=== PATIENT | female | born 1980 | race Caucasian/White ===

== ENCOUNTER 2016-07-03 19:31 | Emergency (ER) | payer OTHER ==
[2016-07-03 19:17] LABS: BASOPHIL% 0.9 % (0-2.5); EOSINOPHIL# 0.1 X10e3 (0-0.7); EOSINOPHIL% 1.5 % (0.0-7.0); HEMATOCRIT 28.7 % (35.0-45.0); HEMOGLOBIN 9.5 gm/dL (12.0-16.0); LYMPHOCYTE# 1.7 X10e3 (1.0-3.5); LYMPHOCYTE% 38.2 % (17.0-45.0); MEAN CELL VOLUME 94.7 FL (83-96); MEAN CORPUSCULAR HEMOGLOBIN 31.3 PG (28-34); MEAN PLATELET VOLUME 6.8 FL (6.5-11.5); MONOCYTE# 0.5 X10e3 (0-1.0); MONOCYTE% 10.2 % (3.0-12.0); NEUTROPHIL# 2.2 X10e3 (1.5-7.1); NEUTROPHIL% 49.2 % (40-75); PLATELET COUNT 187 X10e3 (140-420); RED BLOOD COUNT 3.03 X10e (3.90-5.30); WHITE BLOOD COUNT 4.4 X10e3 (4.0-10.5)
[2016-07-03 19:20] LABS: DIFF IND NO
[~2016-07-03 19:31] MED LIST: ALDACTONE100 MG PO; COLESTIPOL HCL11 PO; FOLIC ACID1 MG PO; LASIX20 MG PO; LEVAQUIN PO; MAGNESIUM OXID250 M1 PO; MAGNESIUM400 M1 PO; MULTI VITAMIN1 EACH PO; PRILOSEC20 M1 PO; SPIRONOLACTONE50 MG PO; THIAMINE HCL100 M1 PO; THIAMINE HCL100 M2 PO
[2016-07-03 19:49] LABS: ALBUMIN SERUM 3.4 g/dL (3.5-5.0); ALKALINE PHOSPHATASE 102 U/L (32-92); ALT (SGPT) 26 U/L (10-40); AST (SGOT) 43 U/L (10-42); BILIRUBIN, DIRECT 0.9 mg/dL (0.0-0.2); BILIRUBIN,INDIRECT 2.4 mg/dL (0.0-0.9); BILIRUBIN,TOTAL 3.3 mg/dL (0.2-2.0); BLOOD UREA NITROGEN 8 mg/dL (9-23); BUN/CREATININE RATIO 26.66; CALCIUM SERUM 9.4 mg/dL (8.4-10.2); CARBON DIOXIDE 22 mmol/L (22-31); CHLORIDE 105 mmol/L (100-111); CREATININE SERUM 0.3 mg/dL (0.6-1.4); GLOM FILT RATE Estimated ABOVE60 mL/min (>60); GLUCOSE FASTING 81 mg/dL (70-110); MAGNESIUM 1.2 mg/dL (1.6-3.0); POTASSIUM 3.3 mmol/L (3.5-5.1); PROTEIN TOTAL SERUM 7.4 g/dL (6.0-8.3); SODIUM 139 mmol/L (135-145)
== END 2016-07-03 20:20 | disposition home or self-care (01) ==
LOC: CED 19:31
PROVIDERS: Emergency Medicine
DX: K72.10 Chronic hepatic failure without coma (principal); D64.9 Anemia, unspecified; E87.6 Hypokalemia; E83.42 Hypomagnesemia
CPT/HCPCS: 36415; 80048; 80076; 83735; 85025; 99283

== ENCOUNTER 2016-07-21 21:35 | Emergency (ER) | payer OTHER | END 2016-07-21 21:40 | disposition home or self-care (01) | LOC: CED 21:35 | DX: M79.2 Neuralgia and neuritis, unspecified (principal); R21 Rash and other nonspecific skin eruption | CPT/HCPCS: 99282 ==

== ENCOUNTER → 2016-09-11 | Outpatient (CLI) | payer OTHER ==
--- NOTE | ~2016-09-11 | CR107 ---
[facility] A Service of [facility] RADIOLOGY TEXT RESULTS PATIENT: BRIA SCHMITZ LOCATION: [facility] : [birth year] UNIT #: [id number] AGE: [address]: Jensen Harrell MD SEX: F ORDER DR: [id number] [facility] [address] [place], [place] [address] [id number] O MR#: [id number] Acc #: [id number] NAME: BRIA SCHMITZ : 1980 SEX: F STUDY DATE/TIME: 09/11/2016 14:24 UNIT: [facility] ROOM: STUDY DESCRIPTION: CR Femur 2 Views Rt Attending Physician: Jensen Harrell M.D. Referring Physician: Jensen Harrell M.D. Ordering Physician: Jensen Harrell M.D. MEDICAL IMAGING REPORT This report is preliminary unless electronic signature is present EXAM Right femur 09/11/2016 HISTORY 36-year-old female with skin sores on both legs since April 2016. 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 COMPARISON STUDIES None. FINDINGS 4 views of the right femur demonstrate no acute fracture or dislocation. There are vague, serpiginous vascular calcifications noted throughout the visualized soft tissues. This could correlate to the provided clinical history of calciphylaxis. No large skin ulcerations or evidence of soft tissue gas. IMPRESSION 1. No acute bony abnormality. 2. Vague, serpiginous vascular calcifications noted throughout the soft tissues, which could correspond to the provided clinical history of calciphylaxis. No large skin ulcerations or evidence of soft tissue gas. Dictated by... Rojas Armendariz M.D. THIS IS AN ELECTRONICALLY VERIFIED REPORT Rojas Armendariz M.D. at 09/12/2016 6:05 AM DANIELITO/mariann TD: 09/11/2016 21:10 [facility] A Service of [facility] RADIOLOGY TEXT RESULTS PATIENT: BRIA SCHMITZ LOCATION: [facility] : 82 UNIT #: [id number] AGE: [address]: Jensen Harrell MD SEX: F ORDER DR: JOB #: [id number] MEDICAL IMAGING REPORT Page 1 of 1 COPY
--- NOTE | ~2016-09-11 | XA170 ---
[facility] A Service of [facility] RADIOLOGY TEXT RESULTS PATIENT: BRIA SCHMITZ LOCATION: [facility] : 82 UNIT #: [id number] AGE: [address]: Jensen Harrell MD SEX: F ORDER DR: [id number] [facility] [address] [place], [place] [address] [id number] O MR#: [id number] Acc #: [id number] NAME: BRIA SCHMITZ : 1980 SEX: F STUDY DATE/TIME: 09/11/2016 13:17 UNIT: [facility] ROOM: STUDY DESCRIPTION: XA Paracentesis W Image Attending Physician: Jensen Harrell M.D. Referring Physician: Jensen Harrell M.D. Ordering Physician: Jensen Harrell M.D. Primary Care Physician: Josie Cm MEDICAL IMAGING REPORT This report is preliminary unless electronic signature is present EXAM Ultrasound of the abdomen (this was actually ordered as a Paracentesis) FINDINGS Preliminary ultrasound of the abdomen was performed. No ascites is identified and the procedure was subsequently terminated. IMPRESSION Preliminary ultrasound did not demonstrate any ascites. The procedure was subsequently terminated. Dictated by... Adry Martins M.D. THIS IS AN ELECTRONICALLY VERIFIED REPORT Adry Martins M.D. at 09/17/2016 1:20 PM AFF/aa TD: 09/14/2016 08:41 JOB #: [id number] MEDICAL IMAGING REPORT Page 1 of 1 COPY
--- NOTE | ~2016-09-11 | CR252 ---
[facility] A Service of [facility] RADIOLOGY TEXT RESULTS PATIENT: BRIA SCHMITZ [facility] : 82 UNIT #: [id number] AGE: [address]: Jensen Harrell MD SEX: F ORDER DR: [id number] [facility] [address] [place], [place] [address] [id number] O MR#: [id number] Acc #: [id number] NAME: BRIA SCHMITZ : 1980 SEX: F STUDY DATE/TIME: 09/11/2016 14:37 UNIT: [facility] ROOM: STUDY DESCRIPTION: CR Tibia and Fibula 2 Views Lt Attending Physician: Jensen Harrell M.D. Referring Physician: Jensen Harrell M.D. Ordering Physician: Jensen Harrell M.D. Primary Care Physician: Mariella Cm R.N. MEDICAL IMAGING REPORT This report is preliminary unless electronic signature is present EXAMINATION 2 views of the left tibia and fibula. DATE 09/11/2016 HISTORY 36-year-old female with sores on both legs. Symptoms began April 2016. No documented injury. FINDINGS There is no evidence of fracture, dislocation, or radiopaque foreign body. IMPRESSION Normal left tibia and fibula. Dictated by... Shahana Jacob M.D. THIS IS AN ELECTRONICALLY VERIFIED REPORT Shahana Jacob M.D. at 09/14/2016 8:33 AM EVI/scarlett TD: 09/11/2016 20:52 JOB #: [id number] MEDICAL IMAGING REPORT Page 1 of 1 COPY
--- NOTE | ~2016-09-11 | CR253 ---
[facility] A Service of [facility] RADIOLOGY TEXT RESULTS PATIENT: BRIA SCHMITZ LOCATION: [facility] : 82 UNIT #: [id number] AGE: [address]: Jensen Harrell MD SEX: F ORDER DR: [id number] [facility] [address] [place], [place] [address] [id number] O MR#: [id number] Acc #: [id number] NAME: BRIA SCHMITZ : 1980 SEX: F STUDY DATE/TIME: 09/11/2016 14:34 UNIT: [facility] ROOM: STUDY DESCRIPTION: CR Tibia and Fibula 2 Views Rt Attending Physician: Jensen Harrell M.D. Referring Physician: Jensen Harrell M.D. Ordering Physician: Jensen Harrell M.D. Primary Care Physician: Josie Cm MEDICAL IMAGING REPORT This report is preliminary unless electronic signature is present EXAM 2 views of the right tibia-fibula. Date: 09/11/2016 HISTORY A 36-year-old female. Sores on both legs. Symptoms began April 2016. No documented injury. COMPARISON None. FINDINGS There is no evidence of fracture, dislocation, or radiopaque foreign body. IMPRESSION Normal tibia and fibula. Dictated by... Shahana Jacob M.D. THIS IS AN ELECTRONICALLY VERIFIED REPORT Shahana Jacob M.D. at 09/14/2016 8:33 AM EVI/adrienne TD: 09/11/2016 20:47 JOB #: [id number] MEDICAL IMAGING REPORT Page 1 of 1 COPY
--- NOTE | ~2016-09-11 | CR106 ---
[facility] A Service of [facility] RADIOLOGY TEXT RESULTS PATIENT: BRIA SCHMITZ LOCATION: [facility] : 82 UNIT #: [id number] AGE: [address]: Jensen Harrell MD SEX: F ORDER DR: [id number] [facility] [address]. [place], [place] [address] [id number] O MR#: [id number] Acc #: [id number] NAME: BRIA SCHMITZ : 1980 SEX: F STUDY DATE/TIME: 09/11/2016 14:24 UNIT: [facility] ROOM: STUDY DESCRIPTION: CR Femur 2 Views Lt Attending Physician: Jensen Harrell M.D. Referring Physician: Jensen Harrell M.D. Ordering Physician: Jensen Harrell M.D. Primary Care Physician: Mariella Cm R.N. MEDICAL IMAGING REPORT This report is preliminary unless electronic signature is present EXAM Left femur. DATE OF EXAM 09/11/2016 HISTORY 36-year-old female with skin sores on both legs since April 2016. 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 COMPARISON None. FINDINGS 4 views of the left femur demonstrate no acute fracture or dislocation. There are vague serpiginous vascular calcifications noted throughout the visualized soft tissues, which could correlate to the provided clinical history of calciphylaxis. No evidence of soft tissue gas. IMPRESSION 1. No acute bony abnormality. 1. Vague serpiginous vascular calcifications noted throughout the visualized soft tissues, which could correlate to the provided clinical history of calciphylaxis. No large skin ulcerations or evidence of soft tissue gas. Dictated by... Rojas Armendariz M.D. THIS IS AN ELECTRONICALLY VERIFIED REPORT Rojas Armendariz M.D. at 09/12/2016 6:05 AM JKB/jt [facility] A Service [facility] RADIOLOGY TEXT RESULTS PATIENT: BRIA SCHMITZ LOCATION: [facility] : 82 UNIT #: [id number] AGE: [address]: Jensen Harrell MD SEX: F ORDER DR: TD: 09/11/2016 21:24 JOB #: [id number] MEDICAL IMAGING REPORT Page 1 of 1 COPY
[2016-09-11 12:52] LABS: HEMOGLOBIN 10.3 gm/dL (12.0-16.0); MEAN CELL VOLUME 89.8 FL (83-96); MEAN CORPUSCULAR HEMOGLOBIN 28.8 PG (28-34); MEAN CORPUSCULAR HGB CONC 32.1 g/dL (30-36); MEAN PLATELET VOLUME 7.4 FL (6.5-11.5); RED BLOOD COUNT 3.56 X10e (3.90-5.30); RED CELL DISTRIBUTION WIDTH 16.4 % (11.0-15.5); WHITE BLOOD COUNT 5.4 X10e3 (4.0-10.5)
[2016-09-11 13:06] LABS: INR 1.1; PARTIAL THROMBOPLASTIN TIME 31.4 SECONDS (23.5-31.3)
== END | disposition home or self-care (01) ==
LOC: CIVR 12:13
PROVIDERS: Internal Medicine Gastroenterology
DX: K70.10 Alcoholic hepatitis without ascites (principal); L98.499 Non-pressure chronic ulcer of skin of other sites with unspecified severity; M79.89 Other specified soft tissue disorders
CPT/HCPCS: 36415; 73552; 73590; 85027; 85610; 85730